=== PATIENT | female | born 1985 | race Caucasian/White ===

== ENCOUNTER 2021-11-23 11:24 | Outpatient (CLI) | payer BC, SELFPAY ==
[2021-11-23 15:02] LABS: Chlamydia DNA Amplified* NOT DETECTED (No Detected); GC DNA Amplified* NOT DETECTED (No Detected)
== END 2021-11-23 11:25 | disposition home or self-care (01) ==
LOC: NFLDREF 11:24
PROVIDERS: Visit Provider Registered Nurse
DX: N89.8 Other specified noninflammatory disorders of vagina (principal); Z11.3 Encounter for screening for infections with a predominantly sexual mode of transmission
CPT/HCPCS: 87491; 87591

== ENCOUNTER 2023-02-22 09:59 | Outpatient (CLI) | payer BC, SELFPAY | END 2023-02-22 10:00 | disposition home or self-care (01) | LOC: NFLDREF 15:50 | PROVIDERS: Visit Provider Physician Assistant | DX: Z13.228 Encounter for screening for other metabolic disorders (principal); Z13.1 Encounter for screening for diabetes mellitus | CPT/HCPCS: 80061; 82947 ==

== ENCOUNTER 2024-07-17 13:32 | Outpatient (CLI) | payer BC, SELFPAY ==
[2024-07-20 09:22] LABS: HPV Source Cervix; HPV, High Risk by TMA Detected
[2024-07-20 16:35] LABS: HPV Genotype 16 by TMA Not Detected; HPV Genotype 18/45 by TMA Not Detected; HPVG Source Cervix
== END 2024-07-17 13:33 | disposition home or self-care (01) ==
PROVIDERS: Visit Provider Physician Assistant
DX: R10.12 Left upper quadrant pain (principal); R53.83 Other fatigue; Z79.899 Other long term (current) drug therapy; Z12.4 Encounter for screening for malignant neoplasm of cervix; Z11.51 Encounter for screening for human papillomavirus (HPV)
CPT/HCPCS: 80053; 82150; 82306; 83690; 84443; 87624; 87625; 88141; 88142